=== PATIENT | female | born 1945 | race Caucasian/White ===

== ENCOUNTER 2016-12-12 17:26 | Inpatient (IN) | payer OTHER ==
[~2016-12-12] VITALS: Ht 162.6 cm; Wt 64.2 kg
[2016-12-12] MEDS ORDERED: SIMVASTATIN40 M1 PO (17:59)
[2016-12-12 18:13] LABS: BASOPHIL % 1.4 % (0-2); PLATELET COUNT 199 x10^3mcL (130-400); RED CELL DISTRIBUTION WIDTH 13.5 % (11.5-14.5)
[2016-12-12 18:25] LABS: CALCIUM 8.6 mg/dL (8.5-10.1); CARBON DIOXIDE 28.4 mmol/L (21-32); CHLORIDE SERUM 101 mmol/L (98-107); CREATININE SERUM 0.7 mg/dL (0.6-1.0); GLUCOSE SERUM 109 mg/dL (74-106); POTASSIUM SERUM 3.6 mmol/L (3.5-5.1); SODIUM SERUM 137 mmol/L (136-145)
[2016-12-12 18:37] LABS: ALBUMIN 3.6 g/dL (3.4-5.0); ALKALINE PHOSPHATASE 65 U/L (46-116); ALT/SGPT 22 U/L (14-59); AST/SGOT 18 U/L (15-37); BILIRUBIN TOTAL 0.3 mg/dL (0.20-1.00); T4(THYROXINE) 7.3 ug/dL (4.7-13.3); TOTAL PROTEIN, SERUM 7.3 g/dL (6.4-8.2)
[2016-12-12 18:38] LABS: AMPHETAMINE QUAL UR NONE DETECTED (NEG <=1000)
[2016-12-12 18:55] LABS: CK-MB 0.6 ng/mL (0-3.6)
[2016-12-12 19:01] LABS: UA SPECIFIC GRAVITY 1.025 (1.005-1.035); microscopic required? YES; urine erythrocyte 3+ (NEGATIVE)
[2016-12-12 20:56] VITALS: BP 107/47
[2016-12-12 21:01] VITALS: Ht 162.6 cm; Wt 64.2 kg
[2016-12-13] VITALS: BP 107/47
[2016-12-13 05:23] VITALS: BP 111/54
[2016-12-13 06:11] LABS: PLATELET COUNT 173 x10^3mcL (130-400); RED CELL DISTRIBUTION WIDTH 13.9 % (11.5-14.5)
[2016-12-13 06:27] LABS: CALCIUM 8.4 mg/dL (8.5-10.1); CARBON DIOXIDE 28.1 mmol/L (21-32); CHLORIDE SERUM 105 mmol/L (98-107); CREATININE SERUM 0.6 mg/dL (0.6-1.0); GLUCOSE SERUM 164 mg/dL (74-106); POTASSIUM SERUM 4.4 mmol/L (3.5-5.1); SODIUM SERUM 141 mmol/L (136-145)
[2016-12-13 06:51] LABS: BASOPHIL % 0 % (0-2)
[2016-12-13 09:22] LABS: CHOLESTEROL/HDL RATIO 1.7
[2016-12-13 10:00] VITALS: BP 104/47
[2016-12-13 21:24] VITALS: BP 111/48
[2016-12-14 05:49] VITALS: BP 134/50
[2016-12-14 10:11] VITALS: BP 100/40
[2016-12-14] MEDS ORDERED: MAC100 PO (13:20)
[2016-12-14] MEDS ORDERED: VENTOLIN H0.09 MG/A1 IH (13:20)
[2016-12-14] MEDS ORDERED: PULMICORT180 MCG/Ac IH (13:22)
[2016-12-14 14:08] VITALS: BP 100/40
[2016-12-14 14:16] VITALS: BP 113/41
[2016-12-14] MEDS ORDERED: BLOOD GLUCOSE1 EACH MC (16:17)
[2016-12-14] MEDS ORDERED: LANCET DEVICE1 EACH MC (16:25)
== END 2016-12-14 16:25 | disposition home or self-care (01) | DRG 189 ==
LOC: ED 17:26 → DU 18:28
PROVIDERS: Emergency Medicine; ADMIT Family Medicine
DX: J96.01 Acute respiratory failure with hypoxia (principal); N17.0 Acute kidney failure with tubular necrosis; J44.1 Chronic obstructive pulmonary disease with (acute) exacerbation; N39.0 Urinary tract infection, site not specified; R31.9 Hematuria, unspecified; E11.51 Type 2 diabetes mellitus with diabetic peripheral angiopathy without gangrene; E11.65 Type 2 diabetes mellitus with hyperglycemia; D64.9 Anemia, unspecified; E83.51 Hypocalcemia; E78.5 Hyperlipidemia, unspecified; G43.909 Migraine, unspecified, not intractable, without status migrainosus; Z87.891 Personal history of nicotine dependence; Z77.22 Contact with and (suspected) exposure to environmental tobacco smoke (acute) (chronic); Z68.24 Body mass index [BMI] 24.0-24.9, adult
CPT/HCPCS: 36600; 83880; J0696; J2920; J2930; J7030; J7620; J7633; Q0092

== ENCOUNTER 2016-12-15 13:30 | Emergency (ER) | payer BC ==
[~2016-12-15 13:30] MED LIST: BLOOD GLUCOSE1 EACH MC; LANCET DEVICE1 EACH MC; MAC100 PO; PULMICORT180 MCG/Ac IH; SIMVASTATIN40 M1 PO; VENTOLIN H0.09 MG/A1 IH
[2016-12-15 16:35] LABS: BASOPHIL % 0.2 % (0-2); PLATELET COUNT 206 x10^3mcL (130-400)
[2016-12-15 16:43] LABS: CALCIUM 8.6 mg/dL (8.5-10.1); CARBON DIOXIDE 31.3 mmol/L (21-32); CHLORIDE SERUM 104 mmol/L (98-107); CREATININE SERUM 0.7 mg/dL (0.6-1.0); GLUCOSE SERUM 91 mg/dL (74-106); POTASSIUM SERUM 3.9 mmol/L (3.5-5.1); SODIUM SERUM 142 mmol/L (136-145)
[2016-12-15 16:55] VITALS: BP 119/71
== END 2016-12-15 18:44 | disposition home or self-care (01) ==
LOC: ED 13:30
PROVIDERS: Emergency Medicine
DX: K11.20 Sialoadenitis, unspecified (principal); J44.9 Chronic obstructive pulmonary disease, unspecified; E78.00 Pure hypercholesterolemia, unspecified
CPT/HCPCS: J7030; Q9967

== ENCOUNTER 2017-05-29 14:04 | Inpatient (IN) | payer OTHER ==
[~2017-05-29] VITALS: Ht 157.5 cm; Wt 70.0 kg
[2017-05-29 15:01] LABS: PLATELET COUNT 322 x10^3mcL (130-400); RED CELL DISTRIBUTION WIDTH 13.9 % (11.5-14.5)
[2017-05-29 15:15] LABS: CARBON DIOXIDE 27.9 mmol/L (21-32); CHLORIDE SERUM 95 mmol/L (98-107); CREATININE SERUM 0.9 mg/dL (0.6-1.0); GLUCOSE SERUM 103 mg/dL (74-106); POTASSIUM SERUM 3.9 mmol/L (3.5-5.1); SODIUM SERUM 136 mmol/L (136-145)
[2017-05-29 15:20] LABS: ALKALINE PHOSPHATASE 58 U/L (46-116); ALT/SGPT 22 U/L (14-59); AST/SGOT 18 U/L (15-37); BILIRUBIN TOTAL 0.5 mg/dL (0.20-1.00); LIPASE 47 IU/L (73-393); TOTAL PROTEIN, SERUM 6.7 g/dL (6.4-8.2)
[2017-05-29 15:25] LABS: ALBUMIN 2.9 g/dL (3.4-5.0)
[2017-05-29 16:00] LABS: BAND NEUTROPHIL 8 % (0-10); BASOPHIL 0 % (0-2); MONOCYTE 14 % (0-7); SEGMENTED NEUTROPHILS 71 % (37-75); rbc morphology (normal/abnorm) NORMAL (NORMAL)
[2017-05-29 18:46] LABS: CHOLESTEROL/HDL RATIO 2.5; MAGNESIUM 1.9 mg/dL (1.8-2.4); PHOSPHOROUS 3.9 mg/dL (2.5-4.9)
[2017-05-29 18:53] LABS: T3 TOTAL 0.9 ng/mL
[2017-05-29 19:04] LABS: FREE T4 1.26 ng/dL (0.76-1.46); FREE THYROXINE INDEX 3.1 ug/dL (1.4-4.5); T4(THYROXINE) 8.5 ug/dL (4.7-13.3)
[2017-05-29 20:02] VITALS: BP 103/52
[2017-05-29 21:15] VITALS: BP 103/43
[2017-05-29 23:05] LABS: UA SPECIFIC GRAVITY >=1.030 (1.005-1.035); microscopic required? YES; urine erythrocyte 2+ (NEGATIVE)
[2017-05-29 23:14] LABS: AMPHETAMINE QUAL UR NONE DETECTED (NEG <=1000)
[2017-05-30 06:14] VITALS: BP 99/42
[2017-05-30 06:30] VITALS: BP 99/42
[2017-05-30 07:49] LABS: CALCIUM 7.6 mg/dL (8.5-10.1); CARBON DIOXIDE 26.3 mmol/L (21-32); CHLORIDE SERUM 100 mmol/L (98-107); CREATININE SERUM 0.6 mg/dL (0.6-1.0); GLUCOSE SERUM 101 mg/dL (74-106); MAGNESIUM 1.7 mg/dL (1.8-2.4); PHOSPHOROUS 2.7 mg/dL (2.5-4.9); POTASSIUM SERUM 4.1 mmol/L (3.5-5.1); SODIUM SERUM 134 mmol/L (136-145)
[2017-05-30 08:10] LABS: PLATELET COUNT 259 x10^3mcL (130-400); RED CELL DISTRIBUTION WIDTH 13.9 % (11.5-14.5)
[2017-05-30 10:15] VITALS: BP 92/31
[2017-05-30 13:44] VITALS: BP 98/41
[2017-05-30 14:09] LABS: ATYPICAL LYMPH 2 %; BAND NEUTROPHIL 30 % (0-10); BASOPHIL 0 % (0-2); MONOCYTE 12 % (0-7); SEGMENTED NEUTROPHILS 43 % (37-75)
[2017-05-30 14:11] LABS: PLATELET MORPHOLOGY PLATELETS NORMAL; rbc morphology (normal/abnorm) NORMAL (NORMAL)
[2017-05-30 17:26] VITALS: BP 95/37
[2017-05-30 22:54] VITALS: BP 94/58
[2017-05-31] VITALS (7 sets, daily range): BP systolic 89–105; BP diastolic 41–65; Ht 157.5 cm; Wt 70.0 kg
[2017-05-31 11:06] LABS: CALCIUM 7.2 mg/dL (8.5-10.1); CARBON DIOXIDE 26.3 mmol/L (21-32); CHLORIDE SERUM 104 mmol/L (98-107); CREATININE SERUM 0.6 mg/dL (0.6-1.0); GLUCOSE SERUM 115 mg/dL (74-106); POTASSIUM SERUM 3.8 mmol/L (3.5-5.1); SODIUM SERUM 139 mmol/L (136-145)
[2017-05-31 11:16] LABS: PLATELET COUNT 269 x10^3mcL (130-400); RED CELL DISTRIBUTION WIDTH 14.2 % (11.5-14.5)
[2017-05-31 13:11] LABS: ATYPICAL LYMPH 2 %; BAND NEUTROPHIL 29 % (0-10); BASOPHIL 0 % (0-2); MONOCYTE 11 % (0-7); SEGMENTED NEUTROPHILS 50 % (37-75)
[2017-06-01 05:11] VITALS: BP 106/67
[2017-06-01 07:30] LABS: PLATELET COUNT 297 x10^3mcL (130-400)
[2017-06-01 07:51] LABS: CALCIUM 7.5 mg/dL (8.5-10.1); CARBON DIOXIDE 26.2 mmol/L (21-32); CHLORIDE SERUM 103 mmol/L (98-107); CREATININE SERUM 0.6 mg/dL (0.6-1.0); GLUCOSE SERUM 116 mg/dL (74-106); POTASSIUM SERUM 3.9 mmol/L (3.5-5.1); SODIUM SERUM 138 mmol/L (136-145)
[2017-06-01 08:35] LABS: RED CELL DISTRIBUTION WIDTH 14.8 % (11.5-14.5)
[2017-06-01 09:39] VITALS: BP 108/54
[2017-06-01 11:25] LABS: BAND NEUTROPHIL 4 % (0-10); BASOPHIL 0 % (0-2); MONOCYTE 5 % (0-7); SEGMENTED NEUTROPHILS 90 % (37-75)
[2017-06-01 11:26] LABS: rbc morphology (normal/abnorm) ABNORMAL (NORMAL)
[2017-06-01 11:27] LABS: PLATELET MORPHOLOGY PLATELETS NORMAL
[2017-06-01 13:50] LABS: RED BLOOD CELLS 3.59 M/mm3 (4.10-5.10)
[2017-06-01 13:53] LABS: IRON 22 ug/dL (50-170); TOTAL IRON BINDING CAPACITY 124 ug/dL (250-450)
[2017-06-01 17:19] VITALS: BP 97/47
[2017-06-01 20:31] VITALS: BP 105/52
[2017-06-02 05:30] VITALS: BP 118/56
[2017-06-02 07:07] LABS: CALCIUM 7.4 mg/dL (8.5-10.1); CARBON DIOXIDE 27.1 mmol/L (21-32); CHLORIDE SERUM 103 mmol/L (98-107); CREATININE SERUM 0.5 mg/dL (0.6-1.0); GLUCOSE SERUM 105 mg/dL (74-106); POTASSIUM SERUM 3.4 mmol/L (3.5-5.1); SODIUM SERUM 137 mmol/L (136-145)
[2017-06-02 07:32] LABS: PLATELET COUNT 303 x10^3mcL (130-400)
[2017-06-02 10:32] VITALS: BP 107/62
[2017-06-02 11:17] LABS: BAND NEUTROPHIL 4 % (0-10); BASOPHIL 0 % (0-2); MONOCYTE 14 % (0-7); MYELOCYTE 1 % (0-2); SEGMENTED NEUTROPHILS 74 % (37-75)
[2017-06-02 11:18] LABS: burr cell (echinocyte) 1+; rbc morphology (normal/abnorm) ABNORMAL (NORMAL)
[2017-06-02 11:19] LABS: schistocyte (helmet cell) 1+
[2017-06-02 17:17] VITALS: BP 104/52
[2017-06-02 21:12] VITALS: BP 97/53
[2017-06-03 05:45] VITALS: BP 116/56
[2017-06-03 07:18] LABS: PLATELET COUNT 336 x10^3mcL (130-400)
[2017-06-03 07:23] LABS: CALCIUM 7.4 mg/dL (8.5-10.1); CARBON DIOXIDE 30.4 mmol/L (21-32); CHLORIDE SERUM 104 mmol/L (98-107); CREATININE SERUM 0.6 mg/dL (0.6-1.0); GLUCOSE SERUM 119 mg/dL (74-106); POTASSIUM SERUM 3.7 mmol/L (3.5-5.1); SODIUM SERUM 139 mmol/L (136-145)
[2017-06-03 08:33] LABS: RED CELL DISTRIBUTION WIDTH 15.1 % (11.5-14.5)
[2017-06-03 08:55] VITALS: BP 143/50
[2017-06-03 11:40] VITALS: BP 141/96
[2017-06-03 13:09] LABS: BAND NEUTROPHIL 10 % (0-10); BASOPHIL 0 % (0-2); METAMYELOCTE 1 % (0-2); MONOCYTE 10 % (0-7); MYELOCYTE 1 % (0-2); SEGMENTED NEUTROPHILS 70 % (37-75); rbc morphology (normal/abnorm) ABNORMAL (NORMAL); schistocyte (helmet cell) 1+
[2017-06-03 13:10] LABS: PLATELET MORPHOLOGY GIANT PLATELET SEEN; burr cell (echinocyte) 1+; tear drop cell (dacryocyte) 1+
[2017-06-03 17:11] VITALS: BP 116/50
[2017-06-03 20:50] VITALS: BP 113/52
[2017-06-04 05:57] VITALS: BP 105/54
[2017-06-04 07:12] LABS: PLATELET COUNT 358 x10^3mcL (130-400)
[2017-06-04 07:26] LABS: RED CELL DISTRIBUTION WIDTH 15.1 % (11.5-14.5)
[2017-06-04 09:34] VITALS: BP 115/51
[2017-06-04] MEDS ORDERED: ACETAMINOPHEN-H1 TA1 PO (09:41)
[2017-06-04] MEDS ORDERED: POTASSIUM CHLO10 MEQ PO (09:59)
[2017-06-04] MEDS ORDERED: LASIX20 MG PO (10:00)
[2017-06-04 11:21] LABS: BAND NEUTROPHIL 4 % (0-10); BASOPHIL 0 % (0-2); MONOCYTE 16 % (0-7); MYELOCYTE 1 % (0-2); SEGMENTED NEUTROPHILS 71 % (37-75)
[2017-06-04 11:22] LABS: PLATELET MORPHOLOGY PLATELETS INCREASED; rbc morphology (normal/abnorm) NORMAL (NORMAL)
[2017-06-04 12:41] VITALS: BP 115/51
[2017-06-04] MEDS ORDERED: LAC PO (13:35)
[2017-06-04] MEDS ORDERED: VANCOCIN125 MG PO (13:35)
[2017-06-04] MEDS ORDERED: CYCLOBENZAPRINE5 MG PO (13:37)
[2017-06-04] MEDS ORDERED: BACLOFEN10 MG PO (14:25)
== END 2017-06-04 15:51 | disposition home or self-care (01) | DRG 371 ==
LOC: ED 14:04 → MU 17:08 → DU 17:08 → MU 05-31 08:43
PROVIDERS: Emergency Medicine; Family Medicine; Student in an Organized Health Care Education/Training Program
DX: A04.72 Enterocolitis due to Clostridium difficile, not specified as recurrent (principal); N17.0 Acute kidney failure with tubular necrosis; E43 Unspecified severe protein-calorie malnutrition; E87.6 Hypokalemia; E83.42 Hypomagnesemia; D63.8 Anemia in other chronic diseases classified elsewhere; J44.9 Chronic obstructive pulmonary disease, unspecified; Z87.891 Personal history of nicotine dependence; Z68.25 Body mass index [BMI] 25.0-25.9, adult
CPT/HCPCS: 78226; 83880; 84439; 87046; 87046-59; A9537; C9113; J0696; J1885; J1940; J2405; J2543; J3490; J3535; J7030; J7040; J7620; J7633; Q0092; Q9967